=== PATIENT | female | born 1970 | race Caucasian/White ===

== ENCOUNTER 2016-08-31 09:12 | Emergency (ER) | payer OTHER ==
[2016-08-31 09:17] VITALS: BP 142/102; PULSE 82; TEMP 98.1; BMI 32.3
--- NOTE | 2016-08-31 09:20 | PDOC ---
History of Present Illness - General Chief Complaint: Bite Stated Complaint: LEFT HAND BITE Time Seen by Provider: 08/31/16 09:14 Past History - Past Medical History Allergies/Adverse Reactions: Allergies Allergy/AdvReac Type Severity Reaction Status Date / Time No Known Allergies Allergy Verified 08/31/16 09:13 Home Medications: Ambulatory Orders Escitalopram Oxalate [Lexapro] 10 mg PO DAILY 11/01/11 Amoxicillin/Potassium Clav [Augmentin 875-125 Tablet] 1 each PO BID #14 tablet 08/31/16 Norgestimate-Ethinyl Estradiol [Ortho Tri-Cyclen Lo Tablet] 1 each PO DAILY 03/11 - Surgical History Cholecystectomy: Yes - Immunization History Immunization Up to Date: Yes - Psycho/Social/Smoking Cessation Hx Anxiety: No Suicidal Ideation: No Smoking Status: No Smoking History: Never smoked Number of Cigarettes Smoked Daily: 0 Hx Alcohol Use: No Drug/Substance Use Hx: No Substance Use Type: Alcohol *Physical Exam - Vital Signs Last Vital Signs Temp Pulse Resp BP Pulse Ox 98.1 F 82 16 142/102 100 08/31/16 09:13 08/31/16 09:13 08/31/16 09:13 08/31/16 09:13 08/31/16 09:13 - Physical Exam General Appearance: Yes: Nourished, Appropriately Dressed HEENT: positive: Normal Voice. negative: Symmetrical, TMs Normal, Pharynx Normal, Pale Conjunctivae, Photophobia, Scleral Icterus (R), Scleral Icterus (L) , Muffled/Hoarse voice, Pharyngeal Erythema, Tonsillar Exudate, Tonsillar Erythema, Nasal Congestion, Rhinorrhea, Sinus Tenderness, Orbits, Hearing Decreased, Hearing Grossly Normal, TM Bulging, TM Dull, TM Erythema, Lesions, Becerra, Excessive drooling, Thrush, Other Neck: positive: Trachea midline, Supple Respiratory/Chest: negative: Accessory Muscle Use, Labored Respiration, Rapid RR , Decreased Breath Sounds, Paradoxal Breathing, Crackles, Rales, Rhonchi, Stridor, Wheezing, Hyperresonant, Dullness, Plerual Rub, Other Cardiovascular: positive: Regular Rate Gastrointestinal/Abdominal: negative: Increased Bowel Sounds, Decreased BS, Protuberent, Distended, Guarding, Rebound, Tenderness, Hernia, Mass, Hepatomegaly, Spleenomegaly, Other Musculoskeletal: positive: Normal Inspection Integumentary: positive: Normal Color, Dry, Warm Neurologic: positive: Fully Oriented, Alert, Normal Mood/Affect, Normal Response , Motor Strength 10/27 Medical Decision Making - Medical Decision Making 08/31/16 09:29 Pt picked up a vole (small rodent that her cat picked up) and the vo;e bit her hand and broke the skin on the volar aspect proximal to the left 4th finger. Pt has a kamini pinpoint puncture wound. She will receive augmentin BID x 7 days. No need for rabies vaccine; Uptodate discusses the near zero risk of rabies from small rodents. Pt will be sent home with augmentin. Her tdap was last given 3 - 4years ago. She is to follow with her PMD. She understands to return for pain in the finger or redness or streaking up the arm. *DC/Admit/Observation/Transfer Diagnosis at time of Disposition: Bite by animal - Discharge Dispostion Disposition: HOME Condition at time of disposition: Stable - Prescriptions Prescriptions: Amoxicillin/Potassium Clav [Augmentin 875-125 Tablet] 1 each PO BID #14 tablet - Referrals Referrals: Helen Collado MD [Primary Care Provider] - - Patient Instructions Printed Discharge Instructions: DI for Animal Bites - Post Discharge Activity Work/School Note: Back to Work
[2016-08-31] MEDS ORDERED: AMOX TR/POT CLAV 875MG/125MG TABLETS (FP) PO ONE ×2 (09:21→09:51)
== END 2016-08-31 09:50 | disposition home or self-care (01) ==
LOC: FER 09:12
DX: S61.452A Open bite of left hand, initial encounter (principal); W53.81XA Bitten by other rodent, initial encounter; Y93.89 Activity, other specified; Y92.9 Unspecified place or not applicable
CPT/HCPCS: 99282-25